=== PATIENT | male | born 1975 | race Caucasian/White ===

== ENCOUNTER → 2019-06-29 15:58 | Outpatient (BNVA) | payer SELFPAY | PROVIDERS: Family Provider Nurse Practitioner; PCP Nurse Practitioner; Visit Provider Nurse Practitioner Family | DX: J02.9 Acute pharyngitis, unspecified (principal); J03.90 Acute tonsillitis, unspecified | CPT/HCPCS: 87081; 87880 ==

== ENCOUNTER → 2020-07-26 10:37 | Outpatient (BNVA) | payer SELFPAY | PROVIDERS: Family Provider Nurse Practitioner; PCP Nurse Practitioner; Visit Provider Dermatology | DX: Z01.89 Encounter for other specified special examinations (principal) ==

== ENCOUNTER → 2021-01-24 08:25 | Outpatient (BNVA) | payer SELFPAY | PROVIDERS: Family Provider Nurse Practitioner; PCP Nurse Practitioner; Visit Provider Dermatology | DX: Z13.9 Encounter for screening, unspecified (principal) ==

== ENCOUNTER → 2021-04-17 10:01 | Outpatient (BNVA) | payer OTHER, SELFPAY | PROVIDERS: Family Provider Nurse Practitioner; PCP Nurse Practitioner; Visit Provider Nurse Practitioner Family | DX: Z20.822 Contact with and (suspected) exposure to COVID-19 (principal); Z11.52 Encounter for screening for COVID-19 | CPT/HCPCS: 87635 ==

== ENCOUNTER 2021-04-23 18:28 | Emergency (ER) | payer OTHER, SELFPAY ==
[2021-04-23 19:52] VITALS: BP 107/76; PULSE 94; RESP 19; TEMP 37.7; O2SAT 92; BMI 32.5
--- NOTE | 2021-04-23 20:20 | XRR_ITS ---
PROCEDURE INFORMATION: Exam: XR Chest Exam date and time: 04/23/2021 8:20 PM Age: 46 years old Clinical indication: Dyspnea and fever; Additional info: Covid+, SOB and fever TECHNIQUE: Imaging protocol: XR of the chest. Views: 1 view. COMPARISON: No relevant prior studies available. FINDINGS: Lungs: Dense ground-glass opacities in the peripheral left lung. Small ground-glass opacity in the peripheral right mid lung. Pleural spaces: Unremarkable. No pleural effusion. No pneumothorax. Heart/Mediastinum: Prominence of the left hilar structures. Bones/joints: Unremarkable. XR/XR chest 1V portable [id number] IMPRESSION: 1. Multilobar pneumonia, left greater than right, consistent with COVID-19 pneumonia. 2. Prominent left hilum could represent reactive lymphadenopathy. This can also be seen with pulmonary embolus. If there is clinical concern for pulmonary embolus, follow-up with a CTA of the chest would be recommended.
--- NOTE | 2021-04-23 23:38 | CTR_ITS ---
PROCEDURE INFORMATION: Exam: CTA Chest With Contrast Exam date and time: 04/23/2021 11:38 PM Age: 46 years old Clinical indication: Pain; On breathing; Additional info: Cp covid 19 TECHNIQUE: Imaging protocol: Computed tomographic angiography of the chest with contrast. 3D rendering (Not supervised by radiologist): MIP and/or 3D reconstructed images were created by the technologist. Radiation optimization: All CT scans at this facility use at least one of these dose optimization techniques: automated exposure control; mA and/or kV adjustment per patient size (includes targeted exams where dose is matched to clinical indication); or iterative reconstruction. Contrast material: OMNI 350; Contrast volume: 95 ml; Contrast route: INTRAVENOUS (IV); COMPARISON: CR (CHEST, ) 04/23/2021 8:29 PM RADIATION DOSE METRICS: Total DLP (mGy-cm): 615.51 FINDINGS: Pulmonary arteries: No pulmonary embolism. Aorta: No aortic dissection. Lungs: Hazy bilateral pulmonary opacities which are consistent with COVID-19. Pleural spaces: Unremarkable. No pneumothorax. No pleural effusion. Heart: Unremarkable. No cardiomegaly. No pericardial effusion. Lymph nodes: Multiple, nonspecific, enlarged mediastinal lymph nodes, likely reactive. Liver: There is fatty infiltration of the liver. Bones/joints: Unremarkable. No acute fracture. Soft tissues: Unremarkable. CT/CT angio chest PE protcl [id number] IMPRESSION: 1. No pulmonary embolism. 2. Hazy bilateral pulmonary opacities which are consistent with COVID-19. 3. Fatty infiltration of the liver. 4. No aortic dissection. 5. Multiple, nonspecific, enlarged mediastinal lymph nodes, likely reactive.
[2021-04-24] VITALS: BP 105/70; PULSE 83; RESP 18; O2SAT 91
[2021-04-24] MEDS: iohexol 350 mg/mL 100 mL Btl IV (00:17)
[2021-04-24 00:21] LABS: Basophils % 0.2 %; Hematocrit 48.1 % (42.0-52.0); Hemoglobin 16.8 g/dL (11.7-16.6); Lymphocytes # 1.5 10^3/uL (0.8-4.8); Lymphocytes % 24.4 %; Mean Corpuscular HGB Conc 34.9 g/dL (30.0-36.0); Mean Corpuscular Hemoglobin 31.4 pg (28.0-34.0); Mean Corpuscular Volume 89.9 fl (80-94); Mean Platelet Volume 9.3 fL (7.4-10.4); Monocytes # 0.3 10^3/uL (0.2-0.9); Monocytes % 5.7 %; Neutrophils % 68.9 %; Nucleated Red Blood Cells % 0 %; Platelet Count 246 10^3/cmm (130-400); Red Blood Count 5.35 10^6/uL (4.1-5.3); Red Cell Distribution Width 11.8 % (12.1-15.1)
[2021-04-24 00:35] LABS: D Dimer 0.69 ug/mIFEU (0-0.59)
[2021-04-24 00:40] LABS: Alanine Aminotransferase 46 U/L (0-41); Albumin Level 3.8 g/dL (3.5-5.2); Alkaline Phosphatase 55 IU/L (40-130); Anion Gap 21.3 (5-19); Aspartate Amino Transferase 60 U/L (0-40); Blood Urea Nitrogen 16 mg/dL (6-20); C Reactive Protein 93.9 mg/L (0.0-4.9); Calcium 8.2 mg/dL (8.5-10.5); Carbon Dioxide 26 mmol/L (22-29); Chloride 88 mmol/L (98-107); Globulin 3.2 g/dL (1.3-4.6); Glomerular Filtration Rate 103.2 mL/min (90-130); Glucose 98 mg/dL (65-115); Osmolality Calculated 275 mOsm/kg (285-295); Potassium 3.3 mmol/L (3.5-5.1); Sodium 132 mmol/L (136-145); Total Bilirubin 0.5 mg/dL (0.15-1.2)
[2021-04-24 00:45] LABS: Slide Review Slide Review Perform
[2021-04-24 00:46] LABS: Procalcitonin 0.35 ng/mL (0-0.5)
[2021-04-24 00:59] VITALS: RESP 18
[2021-04-24] MEDS: ketorolac 30 mg/mL INJ 15 MG IVP (00:59)
[2021-04-24] MEDS: morphine 4 mg/mL SDV 1 mL IVP (00:59)
--- NOTE | 2021-04-24 01:40 | ED_ITS ---
HPI - COVID General: Chief Complaint: COVID symptoms Stated Complaint: Covid + Time Seen by Provider: 04/23/21 23:09 Triage information: Has fever, cough or shortness of breath . No known COVID + exposure last 14 days History of Present Illness: HPI Narrative: 46-year-old male on day 9 of symptoms. He was tested positive Saturday. He is experienced generalized weakness, shortness of breath, some diarrhea. Cough and headache as well. MD complaint: known COVID positive Prior covid testing: yes, results known COVID 19 common symptoms: positive fever(s), chills, cough, non-productive cough, dyspnea, fatigue, body aches and headache(s) COVID 19 other sytmptoms: positive chest pressure and chest pain; negative requiring oxygen Onset (ago): day(s) (9) Severity: moderate Pertinent comorbid conditions: diabetes and hypertension Treatment prior to arrival: acetaminophen, ibuprofen and antiviral therapy COVID Results: SARS-CoV-2 RNA (RT-PCR) Detected (NOT DETECTED) A 04/17/21 10:01 04/17/21 Review of Systems Const: Reports: fever(s), chills, body aches and fatigue Card: Reports: chest pain Resp: Reports: dyspnea and non-productive cough Neuro: Reports: headache(s) PFS ED PFSH: Medical History (Updated 04/24/21 @ 01:58 by Jhon Tripathi DO) Hypertension Mixed hyperlipidemia Surgical History History of arthroscopy of right shoulder 2005 Family History Grandfather Hypertension Grandmother Diabetes Denies family history of Cancer Social History Smoking and tobacco status: never smoked Second hand smoke exposure: No Smoking risk assessment/counseling performed?: No Alcohol intake: current Alcohol intake frequency: holidays/special occasions only Desire information about alcohol rehabilitation?: No Counseling given: No Desire information about substance/drug rehabilitation?: No Counseling given: No Adopted: No Caregiver/support person: No Lives independently: Yes Housing: House Marital status: Single Number of children: 2 service: Yes branch: [employer] Current occupational status: employed History of recent travel: No Current gender identity: Male Physical Exam Const: COMMON NORMALS: patient oriented x3 and alert GENERAL APPEARANCE: cooperative and ill appearing; not frail appearing ORIENTATION/CONSCIOUSNESS: Yes awake, Yes oriented to person, Yes oriented to place and Yes oriented to time HENMT: COMMON NORMALS: normocephalic, atraumatic and Normal external nose present HEAD & SCALP: normocephalic and atraumatic FACE & SINUS: normal facial exam NOSE: Normal external nose present THROAT: posterior oropharynx abnormal erythema Eye: COMMON NORMALS: Equal, round and reactive pupils present, EOMs intact bilaterally and conjunctivae normal CONJUNCTIVA: Yes conjunctivae normal PUPIL: Yes Equal, round and reactive pupils present Chest: COMMONS NORMALS: normal inspection of the chest Resp: COMMON NORMALS: normal respiratory effort, No use of accessory muscles and clear to auscultation bilaterally AUSCULTATION: clear to auscultation bilaterally Cardio: COMMON NORMALS: regular rate and regular rhythm RATE: regular rate RHYTHM: regular rhythm GI: COMMON NORMALS: Normal to inspection, nondistended, normoactive bowel sounds present and Soft to palpation PALPATION: Yes Soft to palpation Neuro: COMMON NORMALS: patient oriented x3 SENSORIUM/ORIENTATION: Yes alert, Yes oriented to person, Yes oriented to place and Yes oriented to time Course Vital Signs: Vital signs: Vital Signs Temperature 99.9 F H 04/23/21 19:52 Pulse Rate 83 04/24/21 00:00 Respiratory Rate 18 04/24/21 00:59 Blood Pressure 105/70 04/24/21 00:00 Pulse Oximetry 91 04/24/21 00:00 MDM - COVID MDM Narrative: Medical decision making narrative: Patient's saturations are 90 to 92% on room air. He is not overly tachypneic. He does feel short of breath. White blood cell count is 6. Potassium 3.3. His chest x-ray shows bilateral pneumonia. His D-dimer slightly elevated. CTA shows no pulmonary embolism, but does show bilateral pneumonia. Given his risk factors, and the fact that he is on day 9 of symptoms, monoclonal antibody infusion is given to the patient here. He would not have time to set up as an outpatient. He will come back for worsening symptoms. Lab Data: Labs: Lab Results 04/24/21 04/24/21 04/24/21 00:15 00:15 00:15 WBC 6.0 10^3/uL 10^3/ uL (4.0-10.0) RBC 5.35 10^6/uL H 10 ^6/uL (4.1-5.3) Hgb 16.8 g/dL H g/dL (11.7-16.6) Hct 48.1 % % (42.0-52.0) MCV 89.9 fl fl (80-94) MCH 31.4 pg pg (28.0-34.0) MCHC 34.9 g/dL g/dL (30.0-36.0) RDW 11.8 % L % (12.1-15.1) Plt Count 246 10^3/cmm 10^3 /cmm (130-400) MPV 9.3 fL fL (7.4-10.4) Neut % (Auto) 68.9 % % Lymph % (Auto) 24.4 % % [place] % (Auto) 5.7 % % Eos % (Auto) 0.0 % % Baso % (Auto) 0.2 % % Neut # (Auto) 4.10 10^3/uL 10^3 /uL (1.8-7.7) Lymph # (Auto) 1.5 10^3/uL 10^3/ uL (0.8-4.8) Chester # (Auto) 0.3 10^3/uL 10^3/ uL (0.2-0.9) Eos # (Auto) 0.0 10^3/uL 10^3/ uL (0.0-0.8) Baso # (Auto) 0.0 10^3/uL 10^3/ uL (0.0-0.1) Nucleated RBC % (a uto) 0 % % Nucleated RBCs # 0.0 /100WBC /100W BC D-Dimer 0.69 ug/mIFEU H u g/mIFEU (0-0.59) Sodium 132 mmol/L L mmol /L (136-145) Potassium 3.3 mmol/L L mmol /L (3.5-5.1) Chloride 88 mmol/L L mmol/ L (98-107) Carbon Dioxide 26 mmol/L mmol/L (22-29) Anion Gap 21.3 H (5-19) BUN 16 mg/dL mg/dL (6-20) Creatinine 0.8 mg/dL mg/dL (0.7-1.2) GFR Calculation 103.2 mL/min mL/m in (90-130) Glucose 98 mg/dL mg/dL (65-115) Calculated Osmolal ity 275 mOsm/kg L mOs m/kg (285-295) Calcium 8.2 mg/dL L mg/dL (8.5-10.5) Total Bilirubin 0.5 mg/dL mg/dL (0.15-1.2) AST 60 U/L H U/L (0-40) ALT 46 U/L H U/L (0-41) Alkaline Phosphata se 55 IU/L IU/L (40-130) C-Reactive Protein 93.9 mg/L H mg/L (0.0-4.9) Total Protein 7.0 g/dL g/dL (6.6-8.7) Albumin 3.8 g/dL g/dL (3.5-5.2) Globulin 3.2 g/dL g/dL (1.3-4.6) Procalcitonin 0.35 ng/mL ng/mL (0-0.5) COVID Results: SARS-CoV-2 RNA (RT-PCR) Detected (NOT DETECTED) A 04/17/21 10:01 04/17/21 Discharge Plan Discharge Patient Disposition: Home Clinical Impression: Pneumonia due to COVID-19 virus Condition: Stable Prescriptions: New dexamethasone 6 mg tablet 6 mg PO DAILY Qty: 5 RF: 0 No Action amlodipine [Norvasc] 5 mg tablet 5 mg PO DAILY Qty: 30 RF: 5 benazepril 40 mg tablet 40 mg PO DAILY Qty: 30 RF: 5 chlorthalidone 25 mg tablet 25 mg PO DAILY Qty: 30 RF: 5 rosuvastatin [Crestor] 10 mg tablet 10 mg PO DAILY Qty: 30 RF: 5 metformin 500 mg tablet extended release 24 hr 1,000 mg PO DAILY Qty: 60 RF: 5 methylprednisolone [Medrol (John)] 4 mg tablets,dose pack See Rx Instructions PO PER PKG DIR Qty: 21 RF: 0 azithromycin [Zithromax Z-John] 250 mg tablet See Rx Instructions PO .COMPLEX Qty: 6 RF: 0 promethazine-DM 6.25-15 mg/5 mL syrup 5 ml PO Q6H PRN (Reason: cough) Qty: 200 RF: 1 albuterol sulfate [ProAir HFA] 90 mcg/actuation HFA aerosol inhaler 2 puff inhalation Q6H PRN (Reason: shortness of breath or wheezing) Qty: 8.5 RF: 5 budesonide-formoterol [Symbicort] 160-4.5 mcg/actuation HFA aerosol inhaler 2 puff inhalation BID Qty: 10.2 RF: 6 Discharge Orders: Discharge ED (Routine); Ordered 04/24/21 Ordered By: Jhon Tripathi Referrals: Carline Cook, [facility] [Primary Care Provider] - 1-3 days Discharge Diet: Advance as tolerated Discharge Activity: Limit activity as instructed Patient Instructions: COVID-19 (Coronavirus Disease 2019) (ED) Activity Restrictions/Additional Instructions: Return for worsening shortness of breath, worsening weakness, vomiting liquids or medications, inability to control fever, other concerning symptoms. Coding Level of Care Code ED Banquet Houseperson for Chg Fwd Exam Detailed
[2021-04-24 04:24] VITALS: BP 114/84; PULSE 78; RESP 18; O2SAT 92
== END 2021-04-24 04:25 | disposition home or self-care (01) ==
PROVIDERS: Emergency Provider Emergency Medicine; PCP Nurse Practitioner
DX: U07.1 COVID-19 (principal); J12.82 Pneumonia due to coronavirus disease 2019; I10 Essential (primary) hypertension; E78.2 Mixed hyperlipidemia
CPT/HCPCS: 71045; 71275; 80053; 84145; 85025; 85378; 86140; 96365; 96375; 99283; J1885; J2270; Q9967

== ENCOUNTER 2021-04-29 13:43 | Inpatient (IN) | payer OTHER, SELFPAY ==
[2021-04-29] VITALS (9 sets, daily range): BP systolic 96–115; BP diastolic 66–78; PULSE 66–112; RESP 14–24; TEMP 36.6–37.2; O2SAT 90–97; BMI 30.9
--- NOTE | 2021-04-29 14:09 | ED_ITS ---
HPI - COVID General: Chief Complaint: COVID symptoms Stated Complaint: SOB Time Seen by Provider: 04/29/21 14:09 Triage information: Has fever, cough or shortness of breath . Exposure to COVID + person last 14 days History of Present Illness: HPI Narrative: Mr. Neville is a 46-year-old gentleman with history of hypertension and hyperlipidemia presents the emergency department due to shortness of breath and cough as well as generalized symptoms. Symptom onset was approximately 15 days ago. Initially he had fairly mild symptoms such as cough, congestion, and upper respiratory symptoms. He was seen on 1212 and diagnosed with bronchitis. He subsequently returned to the emergency department on the with continued symptoms. He reports symptoms have continued to worsen and now moderate to severe in intensity. He exp eriences profound fatigue. Cough is nonproductive. He has difficulty determining whether there was improvement in the worsening though he thinks perhaps so. He has had difficulty with staying hydrated. Denies any other significant changes, no other specific exacerbating or relieving factors identified. COVID Results: SARS-CoV-2 RNA (RT-PCR) Detected (NOT DETECTED) A 04/17/21 10:01 04/17/21 Review of Systems General: Reports: 10 or more systems reviewed and unremarkable except in HPI and below PFSH ED PFSH: Medical History (Updated 05/04/21 @ 00:01 by ) Hypertension Mixed hyperlipidemia Surgical History History of arthroscopy of right shoulder 2005 Family History Grandfather Hypertension Grandmother Diabetes Denies family history of Cancer Social History Smoking and tobacco status: never smoked Second hand smoke exposure: No Smoking risk assessment/counseling performed?: No Alcohol intake: current Alcohol intake frequency: holidays/special occasions only Desire information about alcohol rehabilitation?: No Counseling given: No Desire information about substance/drug rehabilitation?: No Counseling given: No Adopted: No Caregiver/support person: No Lives independently: Yes Housing: House Marital status: Single Number of children: 2 service: Yes branch: [employer] Current occupational status: employed History of recent travel: No Current gender identity: Male Physical Exam Narrative: EXAM NARRATIVE: GENERAL/CONSTITUTIONAL - ill-appearing. Respiratory distress Eyes - PERRL, no conjunctival injection ENMT - Atraumatic external nose and ears. Dry mucous membranes NECK - supple. trachea midline CARDIOVASCULAR - tachycardic rate and regular rhythm. Normal cap refill. RESPIRATORY - coarse/diminished to auscultation bilaterally. Increased work of breathing, supplemental oxygen in place. Hypoxemic on room air to the low 80s ABDOMEN/GI - Nontender/Nondistended. MSK - Extremities without obvious deformity or tenderness to palpation SKIN - Warm, Dry NEURO - alert and appropriately oriented. Moves all extremities equally. Course ED course: - Patient was seen and evaluated by me at bedside - Patient placed on cardiac monitors, IV access obtained - Initial evaluation notable for exam as above -Symptom treatment ordered - Labs notable for leukocytosis, hemoconcentration. Metabolic panel with evidence of dehydration and hypokalemia, potassium replenishment ordered. - ABG with respiratory alkalosis - Imaging notable for bilateral opacities consistent with pneumonia secondary to Covid as reported in history - Upon serial reexamination after treatment the patient was only minimally improved, still requiring oxygen and ill-appearing - Based on patient history, evaluation, labs, and imaging as interpreted the most likely cause of the patient's condition is COVID-19 pneumonia with hypoxemia - The results of ED evaluation were discussed with the patient including plan for admission due to requirement for level of care not available if discharged to prevent significant worsening/deterioration. -Hospitalist service contacted and agreed admit the patient. - Patient was admitted without further deterioration or significant events. Vital Signs: Vital signs: Vital Signs Temperature 98.3 F 05/03/21 11:38 Pulse Rate 88 05/03/21 11:38 Respiratory Rate 17 05/03/21 11:38 Blood Pressure 114/83 05/03/21 11:38 Pulse Oximetry 93 05/03/21 11:38 MDM - COVID Medical Records: Attestation: I reviewed the patient's medical records. Lab Data: Attestation: I reviewed the patient's lab results. Labs: Lab Results 04/29/21 04/29/21 04/29/21 14:34 14:55 15:09 WBC 11.5 10^3/uL H 10 ^3/uL (4.0-10.0) RBC 5.51 10^6/uL H 10 ^6/uL (4.1-5.3) Hgb 17.1 g/dL H g/dL (11.7-16.6) Hct 48.4 % % (42.0-52.0) MCV 87.8 fl fl (80-94) MCH 31.0 pg pg (28.0-34.0) MCHC 35.3 g/dL g/dL (30.0-36.0) RDW 11.5 % L % (12.1-15.1) Plt Count 523 10^3/cmm H 10 ^3/cmm (130-400) MPV 9.8 fL fL (7.4-10.4) Neut % (Auto) 72.3 % % Lymph % (Auto) 11.9 % % Carson % (Auto) 8.7 % % Eos % (Auto) 2.4 % % Baso % (Auto) 0.5 % % Neut # (Auto) 8.33 10^3/uL H 10 ^3/uL (1.8-7.7) Lymph # (Auto) 1.4 10^3/uL 10^3/ uL (0.8-4.8) Carson # (Auto) 1.0 10^3/uL H 10^ 3/uL (0.2-0.9) Eos # (Auto) 0.3 10^3/uL 10^3/ uL (0.0-0.8) Baso # (Auto) 0.1 10^3/uL 10^3/ uL (0.0-0.1) Nucleated RBC % (a uto) 0 % % Nucleated RBCs # 0.0 /100WBC /100W BC Specimen Type Arterial Sample Site Radial, left ABG pH 7.65 H* (7.35-7.45) ABG pCO2 19.3 mmHg L* mmHg (35-45) ABG pO2 60.2 mmHg L mmHg (80.0-100.0) ABG HCO3 21.0 mmol/L L mmo l/L (22-26) ABG Base Excess 2.9 mmol/L H mmol /L (-2.0-2.0) Jacob Test Pos Hematocrit 49.8 % % (42-52) O2 Delivery Device Nc O2 Liters/Min 8.0 % % Surgical Physician Assistant ID Cak Sodium 130 mmol/L L mmol /L (136-145) Potassium 3.1 mmol/L L mmol /L (3.5-5.1) Chloride 92 mmol/L L mmol/ L (98-107) Carbon Dioxide 22 mmol/L mmol/L (22-29) Anion Gap 19.1 H (5-19) BUN 15 mg/dL mg/dL (6-20) Creatinine 0.7 mg/dL mg/dL (0.7-1.2) GFR Calculation 120.4 mL/min mL/m in (90-130) Glucose 105 mg/dL mg/dL (65-115) Calculated Osmolal ity 271 mOsm/kg L mOs m/kg (285-295) Calcium 8.3 mg/dL L mg/dL (8.5-10.5) Magnesium 1.9 mg/dL mg/dL (1.7-2.3) Total Bilirubin 0.9 mg/dL mg/dL (0.15-1.2) AST 20 U/L U/L (0-40) ALT 34 U/L U/L (0-41) Alkaline Phosphata se 53 IU/L IU/L (40-130) C-Reactive Protein 155.8 mg/L H mg/L (0.0-4.9) Total Protein 6.6 g/dL g/dL (6.6-8.7) Albumin 3.4 g/dL L g/dL (3.5-5.2) Globulin 3.2 g/dL g/dL (1.3-4.6) Procalcitonin 0.11 ng/mL ng/mL (0-0.5) Influenza Type A A g Influenza Type B A g 04/29/21 15:48 WBC RBC Hgb Hct MCV MCH MCHC RDW Plt Count MPV Neut % (Auto) Lymph % (Auto) Carson % (Auto) Eos % (Auto) Baso % (Auto) Neut # (Auto) Lymph # (Auto) Carson # (Auto) Eos # (Auto) Baso # (Auto) Nucleated RBC % (a uto) Nucleated RBCs # Specimen Type Sample Site ABG pH ABG pCO2 ABG pO2 ABG HCO3 ABG Base Excess Jacob Test Hematocrit O2 Delivery Device O2 Liters/Min Surgical Physician Assistant ID Sodium Potassium Chloride Carbon Dioxide Anion Gap BUN Creatinine GFR Calculation Glucose Calculated Osmolal ity Calcium Magnesium Total Bilirubin AST ALT Alkaline Phosphata se C-Reactive Protein Total Protein Albumin Globulin Procalcitonin Influenza Type A A g Negative (Negative) Influenza Type B A g Negative (Negative) EKG Data: EKG 1: Attestation: I personally reviewed and interpreted this EKG as follows: EKG interpretation date: 04/29/21 EKG interpretation time: 15:03 Interpretation: Twelve-lead EKG shows a regular rhythm at a rate of 88. AR interval 164. QRS duration 98. QTc 413. Normal Wiggins. Interpretation: Sinus rhythm. COVID Results: SARS-CoV-2 RNA (RT-PCR) Detected (NOT DETECTED) A 04/17/21 10:01 04/17/21 Discharge Plan Discharge Patient Disposition: Admitted As Inpatient Admit Provider: Jean Paul Kate Clinical Impression: Pneumonia due to COVID-19 virus, Hypoxemia Condition: Stable Discharge Diet: Cardiac and Diabetic Discharge Activity: Resume usual activity Coding Level of Care Code ED Software Implementation Project Manager for Salima Harvey
--- NOTE | 2021-04-29 14:21 | XRR_ITS ---
PROCEDURE INFORMATION: Exam: XR Chest Exam date and time: 04/29/2021 2:21 PM Age: 46 years old Clinical indication: Shortness of breath; Additional info: SOB TECHNIQUE: Imaging protocol: XR of the chest. Views: 1 view. COMPARISON: CR (CHEST, ) 04/23/2021 8:29 PM FINDINGS: Lungs: Worsening patulous opacities within both lungs. Pleural spaces: Unremarkable. No pleural effusion. No pneumothorax. Heart/Mediastinum: Unremarkable. No cardiomegaly. Bones/joints: Unremarkable. XR/XR chest 1V portable [id number] IMPRESSION: Worsening patulous opacities within both lungs consistent with multifocal pneumonia.
--- NOTE | 2021-04-29 14:21 | ECG_ITS ---
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 Measurements Intervals [place] Rate: 88 P: 51 GA: 164 QRS: 15 QRSD: 98 T: 35 QT: 367 QTc: 445 Interpretive Statements SINUS RHYTHM No previous ECG available for comparison Electronically Signed On 04-29-2021 17:11:45 POLE INSPECTOR by Shantell Duong M.D. [email or web address]
[2021-04-29] MEDS: sodium chloride 0.9% 500 ML IV (14:30)
[2021-04-29 14:45] LABS: Arterial Blood Gas Hematocrit 49.8 % (42-52); Base Excess ABG 2.9 mmol/L (-2.0-2.0); Blood Gas Allen Test Pos; Blood Gas Operator Identificat CAK; Blood Gas Sample Site Radial, left; Blood Gas Sample Type Arterial; Oxygen Device NC; PO2 ABG 60.2 mmHg (80.0-100.0)
--- NOTE | 2021-04-29 15:00 | PC.NURSE ---
attempted to update girlfriend- no answer
[2021-04-29 15:20] LABS: Alanine Aminotransferase 34 U/L (0-41); Alkaline Phosphatase 53 IU/L (40-130); Blood Urea Nitrogen 15 mg/dL (6-20); Glomerular Filtration Rate 120.4 mL/min (90-130); Glucose 105 mg/dL (65-115); Magnesium 1.9 mg/dL (1.7-2.3); Total Bilirubin 0.9 mg/dL (0.15-1.2); Total Protein 6.6 g/dL (6.6-8.7)
[2021-04-29 15:27] LABS: Procalcitonin 0.11 ng/mL (0-0.5)
[2021-04-29 15:27] LABS: Basophils # 0.1 10^3/uL (0.0-0.1); Basophils % 0.5 %; Eosinophils # 0.3 10^3/uL (0.0-0.8); Eosinophils % 2.4 %; Hematocrit 48.4 % (42.0-52.0); Hemoglobin 17.1 g/dL (11.7-16.6); Lymphocytes # 1.4 10^3/uL (0.8-4.8); Lymphocytes % 11.9 %; Mean Corpuscular HGB Conc 35.3 g/dL (30.0-36.0); Mean Corpuscular Volume 87.8 fl (80-94); Mean Platelet Volume 9.8 fL (7.4-10.4); Monocytes % 8.7 %; Neutrophils # 8.33 10^3/uL (1.8-7.7); Neutrophils % 72.3 %; Nucleated Red Blood Cells % 0 %; Platelet Count 523 10^3/cmm (130-400); Red Blood Count 5.51 10^6/uL (4.1-5.3); Red Cell Distribution Width 11.5 % (12.1-15.1); White Blood Count 11.5 10^3/uL (4.0-10.0)
[2021-04-29 15:48] LABS: Chloride 92 mmol/L (98-107); Osmolality Calculated 271 mOsm/kg (285-295); Potassium 3.1 mmol/L (3.5-5.1); Sodium 130 mmol/L (136-145)
[2021-04-29 15:49] LABS: Albumin Level 3.4 g/dL (3.5-5.2); Anion Gap 19.1 (5-19); Aspartate Amino Transferase 20 U/L (0-40); C Reactive Protein 155.8 mg/L (0.0-4.9); Calcium 8.3 mg/dL (8.5-10.5); Carbon Dioxide 22 mmol/L (22-29); Globulin 3.2 g/dL (1.3-4.6)
[2021-04-29] MEDS: potassium chloride ER 20 mEq Tablet 40 MEQ PO (15:59)
[2021-04-29 16:12] LABS: Influenza A by IFA Negative (Negative); Influenza B by IFA Negative (Negative)
[2021-04-29 16:14] LABS: ABG PCO2 19.3 mmHg (35-45); ABG PH Result 7.65 (7.35-7.45)
--- NOTE | 2021-04-29 17:20 | P.HP_ITS ---
Providers/Chief Complaint Admitting Physician: Jean Paul Kate MD Primary Care Provider: Carline Cook, CONSUMER AFFAIRS SPECIALIST-C Chief Complaint: SOB History of Present Illness 46 year old male with past medical history of hypertension, diabetes, came in with chief complaint of worsening fatigue, worsening shortness of breath, nonproductive cough, decreased poor oral intake, extreme sleepiness, nausea, going on for the last 7 to 8 days, he initially started having upper respiratory tract symptoms (cough congestion) about 15 days back, initially he was diagnosed with acute bronchitis, but due to continued worsening of symptoms he came to the ER on of this month At that time he was diagnosed with COVID-19, he was given antibody infusion, and sent home from the ER, on azithromycin, dexamethasone p.o. Symbicort inhaler, albuterol inhaler, symptoms have continued to worsen after discharge. Upon arrival in the ER: He was worked up for above-mentioned, CTA chest done on: 04/24: No pulmonary embolism, bilateral groundglass opacity, in both the lung field. X-ray chest: Done today: Has shown worsening of bilateral infiltrates. Pertinent labs: WBC 11.5, H&H:17.1/48, platelet count:523, serum sodium 137 potassium 3.1, BUN/ serum creatinine:15/0.7, CRP 155, procalcitonin 0.11, Influenza negative, ABG: pH 7.65 , PCO2 19, PO2 60, FiO2 8 L Review of Systems Card: Denies: palpitations, edema or swelling of feet/ankles Resp: Denies: wheezing or pain on inspiration GI: Denies: abdominal pain, diarrhea or constipation : Denies: flank pain or difficulty urinating Musc: Denies: back pain, extremity pain or extremity swelling Neuro: Denies: difficulty walking or confusion Medications/Allergies Home Medications Medication Instructions Recorded Confirmed Last Taken Type amlodipine 5 mg tablet 5 mg PO DAILY #30 tab 12/19/20 04/17/21 Unknown Rx benazepril 40 mg tablet 40 mg PO DAILY #30 tab 12/19/20 04/17/21 Unknown Rx chlorthalidone 25 mg tablet 25 mg PO DAILY #30 tab 12/19/20 04/17/21 Unknown Rx metformin 500 mg tablet,extended 1,000 mg PO DAILY #60 tab 12/19/20 04/17/21 Unknown Rx release 24 hr rosuvastatin 10 mg tablet 10 mg PO DAILY #30 tab 12/19/20 04/17/21 Unknown Rx albuterol sulfate 90 mcg/actuation 2 puff INHALATION Q6H PRN #8.5 g 04/17/21 04/17/21 Unknown Rx aerosol inhaler azithromycin 250 mg tablet See Rx Instructions PO .COMPLEX #6 04/17/21 04/17/21 Unknown Rx tab budesonide-formoterol HFA 160 2 puff INHALATION BID #10.2 g 04/17/21 04/17/21 Unknown Rx mcg-4.5 mcg/actuation aerosol inhaler methylprednisolone 4 mg tablets in See Rx Instructions PO PER PKG DIR 04/17/21 04/17/21 Unknown Rx a dose pack #21 ea promethazine-DM 6.25 mg-15 mg/5 mL 5 ml PO Q6H PRN #200 ml 04/17/21 04/17/21 Unknown Rx oral syrup dexamethasone 6 mg PO DAILY #5 tab 04/24/21 Unknown Rx Allergies Allergy/AdvReac Type Severity Reaction Status Date / Time No Known Allergies Allergy Verified 04/17/21 08:58 PFSH Acute PFSH: Medical History (Updated 04/29/21 @ 18:45 by Jean Paul Kate MD) Hypertension Mixed hyperlipidemia Surgical History History of arthroscopy of right shoulder 2005 Family History Grandfather Hypertension Grandmother Diabetes Denies family history of Cancer Social History Smoking and tobacco status: never smoked Second hand smoke exposure: No Smoking risk assessment/counseling performed?: No Alcohol intake: current Alcohol intake frequency: holidays/special occasions only Desire information about alcohol rehabilitation?: No Counseling given: No Desire information about substance/drug rehabilitation?: No Counseling given: No Adopted: No Caregiver/support person: No Lives independently: Yes Housing: House Marital status: Single Number of children: 2 service: Yes branch: [employer] Current occupational status: employed History of recent travel: No Current gender identity: Male Vitals/I&O/Wt Last Vital Signs Temp 97.8 F 04/29/21 14:01 Pulse 72 04/29/21 16:15 Resp 14 04/29/21 16:15 BP 107/78 04/29/21 16:15 Pulse Ox 97 04/29/21 16:15 Weight last 48 hrs Weight 99.79 kg Physical Exam Const: COMMON NORMALS: patient oriented x3 HENMT: COMMON NORMALS: normocephalic and atraumatic HEAD & SCALP: normocephalic and atraumatic Resp: EFFORT & INSPECTION: Yes tachypneic, Yes respiratory distress and Yes labored AUSCULTATION: diminished lung sounds Cardio: COMMON NORMALS: regular rate, regular rhythm, S1 normal heart sound present, S2 normal heart sound present, No gallops present (Cardio), No murmurs present (Cardio), No rub (Cardio) and Peripheral pulses 2+ throughout RATE: regular rate RHYTHM: regular rhythm HEART SOUNDS: S1 normal heart sound present and S2 normal heart sound present PERIPHERAL PULSES: Peripheral pulses 2+ throughout GI: COMMON NORMALS: Normal to inspection, nondistended, normoactive bowel sounds present, Soft to palpation, non-tender, No hepatosplenomegaly present and no masses AUSCULTATION: Yes normoactive bowel sounds PALPATION: Yes Soft to palpation and Yes No hepatosplenomegaly present RECTAL EXAM: Yes deferred Extremity: COMMON NORMALS: no clubbing, cyanosis or edema and no pedal edema Neuro: COMMON NORMALS: patient oriented x3 Data : 04/29/21 15:09 04/29/21 14:55 A&P Assessment and plan (1) Pneumonia due to COVID-19 virus: Status: Acute (2) Hypoxemia: Status: Acute (3) Essential hypertension: Status: Chronic (4) Diabetes: Status: Acute (5) Hyponatremia: Status: Acute Additional A&P Information 46 year old male with past medical history of hypertension, diabetes, came in with chief complaint of worsening fatigue, worsening shortness of breath, nonproductive cough, decreased poor oral intake, extreme sleepiness, nausea, going on for the last 7 to 8 days, he initially started having upper respiratory tract symptoms (cough congestion) about 15 days back, initially he was diagnosed with acute bronchitis, but due to continued worsening of symptoms he came to the ER on of this month At that time he was diagnosed with COVID-19, he was given antibody infusion, and sent home from the ER, on azithromycin, dexamethasone p.o. Symbicort inhaler, albuterol inhaler, symptoms have continued to worsen after discharge. #Covid pneumonia: Currently the patient is on Covid protocol: Monitor inflammatory markers (ESR CRP D-dimer , LDH , ferritin ) Continue to monitor x-ray chest Continue to monitor ABG Blood culture Procalcitonin is normal Sputum culture Given the fact that his CRP is high ( 93--->155): S/p 1 dose of Actemra ( 04/29) Continue remdesivir for 5-day Continue dexamethasone for 10 days Lovenox 40 subcu daily DuoNebs Advair inhaler Empirically on ceftriaxone azithromycin Supplemental oxygen as needed Monitor intake output #Hypertension: Currently blood pressure is well controlled #Diabetes: Continue sliding scale insulin Carbohydrate consistent diet Monitor fingerstick glucose #CODE STATUS: Full code #DVT prophylaxis: On Lovenox 40 Attestations Medical Necessity Statement*: Patient is to be in hospital for management of Covid pneumonia.Anticipated length of stay greater than 2 midnights. Coding Level of Care Code Acute Vp Patient for [facility] Fwd Exam Detailed Diagnoses Pneumonia due to COVID-19 virus U07.1; J12.82 Hypoxemia R09.02 Essential hypertension I10 Diabetes E11.9 Hyponatremia E87.1
--- NOTE | 2021-04-29 18:24 | PC.NURSE ---
report given to SKYLAR Graham Med/surg , pt to transfer with mask via ED cart to [facility], [facility] in place, updated that meds have not been started, SKYLAR Graham stated that they will start them on Med/surg
[2021-04-29] MEDS: enoxaparin 40 mg/0.4 mL Syringe SUBCUT (19:23)
[2021-04-29] MEDS: dexamethasone 4 mg/mL INJ 6 MG IVP (19:24)
[2021-04-29] MEDS: sodium chloride 0.9% 1,000 ML 30 ML IV (19:24)
[2021-04-29] MEDS: ascorbic acid 500 mg Tablet 1000 MG PO (19:24)
[2021-04-29] MEDS: cefTRIAXone 1,000 MG in sodium chloride 0.9% (plus) 50 ML 100 MG IV (19:25)
[2021-04-29] MEDS: remdesivir 200 MG in sodium chloride 0.9% (100 ml) 60 ML 100 MG IV (20:02)
[2021-04-29] MEDS: LORazepam 2 mg/mL INJ 1 mL IVP (20:03)
[2021-04-29 20:24] LABS: Glucose Point of Care 89 mg/dL (70-110)
[2021-04-29] MEDS: ipratropium-albuterol 3 mL Neb INHALATION (20:33)
[2021-04-29] MEDS: tocilizumab 800 MG in sodium chloride 0.9% (100 ml) 100 ML 100 MG IV (21:06)
[2021-04-29] MEDS: azithromycin 500 MG in sodium chloride 0.9% 250 ML 250 MG IV (22:17)
[2021-04-30] VITALS (16 sets, daily range): BP systolic 110–126; BP diastolic 69–86; PULSE 60–106; RESP 17–24; TEMP 36.4–36.9; O2SAT 90–96
[2021-04-30] MEDS: ipratropium-albuterol 3 mL Neb INHALATION ×7 (00:41→23:26)
[2021-04-30 06:34] LABS: Glucose Point of Care 137 mg/dL (70-110)
[2021-04-30 06:48] LABS: Basophils % 0.3 %; Eosinophils % 0.2 %; Hematocrit 41.5 % (42.0-52.0); Hemoglobin 14.4 g/dL (11.7-16.6); Lymphocytes # 1.1 10^3/uL (0.8-4.8); Lymphocytes % 16.4 %; Mean Corpuscular HGB Conc 34.7 g/dL (30.0-36.0); Mean Corpuscular Hemoglobin 31.4 pg (28.0-34.0); Mean Corpuscular Volume 90.4 fl (80-94); Mean Platelet Volume 9.7 fL (7.4-10.4); Monocytes # 0.5 10^3/uL (0.2-0.9); Monocytes % 6.8 %; Neutrophils # 4.77 10^3/uL (1.8-7.7); Neutrophils % 72.2 %; Nucleated Red Blood Cells % 0 %; Platelet Count 465 10^3/cmm (130-400); Red Blood Count 4.59 10^6/uL (4.1-5.3); Red Cell Distribution Width 11.8 % (12.1-15.1); White Blood Count 6.6 10^3/uL (4.0-10.0)
[2021-04-30 06:58] LABS: Alanine Aminotransferase 29 U/L (0-41); Alkaline Phosphatase 49 IU/L (40-130); Anion Gap 15.1 (5-19); Aspartate Amino Transferase 14 U/L (0-40); Blood Urea Nitrogen 14 mg/dL (6-20); Carbon Dioxide 23 mmol/L (22-29); Chloride 101 mmol/L (98-107); Globulin 3.7 g/dL (1.3-4.6); Glomerular Filtration Rate 120.4 mL/min (90-130); Glucose 130 mg/dL (65-115); Osmolality Calculated 282 mOsm/kg (285-295); Potassium 4.1 mmol/L (3.5-5.1); Sodium 135 mmol/L (136-145); Total Bilirubin 0.4 mg/dL (0.15-1.2); Total Protein 6.7 g/dL (6.6-8.7)
[2021-04-30 06:59] LABS: Creatine Phosphokinase 41 U/L (39-308)
[2021-04-30 07:26] LABS: Slide Review Slide Review Perform
[2021-04-30] MEDS: cholecalciferol (vitamin D3) 1,000 unit Tablet 2000 UNIT PO (08:12)
[2021-04-30] MEDS: ascorbic acid 500 mg Tablet 1000 MG PO ×2 (08:13→17:57)
[2021-04-30] MEDS: benzonatate 100 mg Capsule PO (08:13)
[2021-04-30] MEDS: zinc gluconate 50 mg Tablet PO (08:13)
[2021-04-30 16:38] LABS: Glucose Point of Care 142 mg/dL (70-110)
[2021-04-30] MEDS: enoxaparin 40 mg/0.4 mL Syringe SUBCUT (17:57)
[2021-04-30] MEDS: dexamethasone 4 mg/mL INJ 6 MG IVP (17:57)
[2021-04-30] MEDS: cefTRIAXone 1,000 MG in sodium chloride 0.9% (plus) 50 ML 100 MG IV (17:57)
--- NOTE | 2021-04-30 18:35 | PM.PN ---
Subjective Subjective: Interval history: Patient was seen and examined this morning, says that he is feeling better, says shortness of breath is improved, says that energy level is better. Remained afebrile overnight, intake output is not accurately charted, as the patient is not using urinal. Dehydration has improved. Medications: Reviewed: Yes Vitals/I&O/Wt Last Vital Signs Temp 98.5 F 04/30/21 16:00 Pulse 68 04/30/21 16:00 Resp 17 04/30/21 16:00 BP 110/69 04/30/21 16:00 Pulse Ox 96 04/30/21 16:00 04/30/21 04/30/21 04/30/21 06:59 14:59 22:59 Intake Total 550 / 1540 476 / 476 480 / 956 Output Total 400 / 400 Balance 150 / 1140 476 / 476 480 / 956 Weight last 48 hrs Weight 102.784 kg Weight 103.561 kg Weight 99.79 kg Physical Exam Const: COMMON NORMALS: patient oriented x3 HENMT: COMMON NORMALS: normocephalic and atraumatic HEAD & SCALP: normocephalic and atraumatic Resp: EFFORT & INSPECTION: Yes able to speak in complete sentences AUSCULTATION: diminished lung sounds OTHER: Minimal fine crackles bilateral. Cardio: COMMON NORMALS: regular rate, regular rhythm, S1 normal heart sound present, S2 normal heart sound present, No gallops present (Cardio), No murmurs present (Cardio), No rub (Cardio) and Peripheral pulses 2+ throughout RATE: regular rate RHYTHM: regular rhythm HEART SOUNDS: S1 normal heart sound present and S2 normal heart sound present PERIPHERAL PULSES: Peripheral pulses 2+ throughout GI: COMMON NORMALS: Normal to inspection, nondistended, normoactive bowel sounds present, Soft to palpation, non-tender, No hepatosplenomegaly present and no masses AUSCULTATION: Yes normoactive bowel sounds PALPATION: Yes Soft to palpation and Yes No hepatosplenomegaly present RECTAL EXAM: Yes deferred Extremity: COMMON NORMALS: no clubbing, cyanosis or edema and no pedal edema Neuro: COMMON NORMALS: patient oriented x3 Data : 04/30/21 06:24 04/30/21 06:24 Micro: Microbiology 04/30/21 06:20 Blood Culture - Preliminary Blood SPECIMEN COLLECTED 04/30/21 06:24 Blood Culture - Preliminary Blood SPECIMEN COLLECTED A&P Assessment and plan (1) Pneumonia due to COVID-19 virus: Status: Acute (2) Hypoxemia: Status: Acute (3) Essential hypertension: Status: Chronic (4) Diabetes: Status: Acute (5) Hyponatremia: Status: Acute Additional A&P Information 46 year old male with past medical history of hypertension, diabetes, came in with chief complaint of worsening fatigue, worsening shortness of breath, nonproductive cough, decreased poor oral intake, extreme sleepiness, nausea, going on for the last 7 to 8 days, he initially started having upper respiratory tract symptoms (cough congestion) about 15 days back, initially he was diagnosed with acute bronchitis, but due to continued worsening of symptoms he came to the ER on of this month At that time he was diagnosed with COVID-19, he was given antibody infusion, and sent home from the ER, on azithromycin, dexamethasone p.o. Symbicort inhaler, albuterol inhaler, symptoms have continued to worsen after discharge. #Covid pneumonia: Currently the patient is on Covid protocol: Monitor inflammatory markers (ESR CRP D-dimer , LDH , ferritin ) Continue to monitor x-ray chest Continue to monitor ABG Blood culture Procalcitonin is normal Sputum culture Given the fact that his CRP is high ( 93--->155): S/p 1 dose of Actemra ( 04/29) Continue remdesivir for 5-day Continue dexamethasone for 10 days Lovenox 40 subcu daily DuoNebs Advair inhaler Empirically on ceftriaxone azithromycin Supplemental oxygen as needed Monitor intake output #Hypertension: Currently blood pressure is well controlled #Diabetes: Continue sliding scale insulin Carbohydrate consistent diet Monitor fingerstick glucose #CODE STATUS: Full code #DVT prophylaxis: On Lovenox 40 Attestations Medical Necessity Statement*: Patient needs to be in the hospital for management of Covid pneumonia. 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
[2021-04-30] MEDS: remdesivir 100 MG in sodium chloride 0.9% (100 ml) 80 ML IV (19:01)
[2021-04-30] MEDS: azithromycin 500 MG in sodium chloride 0.9% 250 ML 250 MG IV (20:26)
[2021-04-30 20:34] LABS: Glucose Point of Care 123 mg/dL (70-110)
[2021-04-30 20:35] LABS: Glucose Point of Care 280 mg/dL (70-110)
[2021-05-01] VITALS (16 sets, daily range): BP systolic 107–136; BP diastolic 68–85; PULSE 68–109; RESP 16–22; TEMP 36.5–36.9; O2SAT 94–98
[2021-05-01] MEDS: ipratropium-albuterol 3 mL Neb INHALATION ×6 (03:01→23:20)
--- NOTE | 2021-05-01 06:00 | XRR_ITS ---
PROCEDURE INFORMATION: Exam: XR Chest Exam date and time: 05/01/2021 6:00 AM Age: 46 years old Clinical indication: Dyspnea; Patient HX: SOB follow up; Additional info: Pna TECHNIQUE: Imaging protocol: XR of the chest. Views: 1 view. Total images: 1 COMPARISON: CR (CHEST, ) 04/29/2021 2:43 PM FINDINGS: Lungs: Left pulmonary opacity is again noted and appears unchanged from the prior exam. Right pulmonary opacity appears improved from the prior exam. Pleural spaces: Unremarkable. No pleural effusion. No pneumothorax. Heart/Mediastinum: Heart size is stable when compared to the prior exam. Bones/joints: Osseous structures are unchanged from the prior exam. XR/XR chest 1V portable [id number] IMPRESSION: 1. Left pulmonary opacity is again noted and appears unchanged from the prior exam. 2. Right pulmonary opacity appears improved from the prior exam.
[2021-05-01 06:11] LABS: Basophils % 0.1 %; Hematocrit 38.3 % (42.0-52.0); Hemoglobin 13.5 g/dL (11.7-16.6); Lymphocytes # 1.1 10^3/uL (0.8-4.8); Lymphocytes % 10.4 %; Mean Corpuscular HGB Conc 35.2 g/dL (30.0-36.0); Mean Corpuscular Hemoglobin 32.1 pg (28.0-34.0); Mean Platelet Volume 9.7 fL (7.4-10.4); Monocytes # 0.7 10^3/uL (0.2-0.9); Monocytes % 6.7 %; Neutrophils # 8.29 10^3/uL (1.8-7.7); Neutrophils % 80.9 %; Nucleated Red Blood Cells % 0 %; Platelet Count 477 10^3/cmm (130-400); Red Blood Count 4.21 10^6/uL (4.1-5.3); Red Cell Distribution Width 11.9 % (12.1-15.1); White Blood Count 10.2 10^3/uL (4.0-10.0)
[2021-05-01 06:28] LABS: C Reactive Protein 37.9 mg/L (0.0-4.9); Lactate Dehydrogenase 237 U/L (135-225)
[2021-05-01 06:30] LABS: Glucose Point of Care 197 mg/dL (70-110)
[2021-05-01 06:32] LABS: Alanine Aminotransferase 30 U/L (0-41); Albumin Level 3.1 g/dL (3.5-5.2); Alkaline Phosphatase 44 IU/L (40-130); Anion Gap 17.4 (5-19); Aspartate Amino Transferase 14 U/L (0-40); Blood Urea Nitrogen 10 mg/dL (6-20); Calcium 7.6 mg/dL (8.5-10.5); Carbon Dioxide 20 mmol/L (22-29); Chloride 102 mmol/L (98-107); D Dimer 1.01 ug/mIFEU (0-0.59); Erythrocyte Sedimentation Rate 38 mm/hr (0-10); Globulin 2.8 g/dL (1.3-4.6); Glomerular Filtration Rate 143.8 mL/min (90-130); Glucose 219 mg/dL (65-115); Osmolality Calculated 288 mOsm/kg (285-295); Potassium 3.4 mmol/L (3.5-5.1); Sodium 136 mmol/L (136-145); Total Bilirubin 0.2 mg/dL (0.15-1.2); Total Protein 5.9 g/dL (6.6-8.7)
[2021-05-01 06:58] LABS: Ferritin 1796 ng/mL (30-400)
[2021-05-01] MEDS: ascorbic acid 500 mg Tablet 1000 MG PO ×2 (09:00→17:15)
[2021-05-01] MEDS: cholecalciferol (vitamin D3) 1,000 unit Tablet 2000 UNIT PO (09:00)
[2021-05-01] MEDS: zinc gluconate 50 mg Tablet PO (09:00)
[2021-05-01] MEDS: insulin lispro 100 unit/1 mL SUBCUT ×2 (09:00→14:08)
--- NOTE | 2021-05-01 11:12 | CT_ITS ---
WS: [id number] CTA OF THE CHEST WITH PULMONARY EMBOLISM PROTOCOL TECHNIQUE: High-resolution contrast enhanced CTA of the chest with coronal and sagittal reformatted i mages with pulmonary embolism protocol. MIP images are also reviewed. CLINICAL INFORMATION: sob, covid COMPARISON: CTA chest 04/24/21 DLP: 1178.[address] scans at [facility] use at least one of these dose optimization techniques: automated e xposure control; mA and/or kV adjustment per patient size (includes targeted exams where dose is matc hed to clinical indication); or iterative reconstruction. FINDINGS: Hazy diffuse bilateral groundglass infiltrates in the left greater than right lung base. This is more prominent in the left upper lobe and left lower lobe. Patchy infiltrates in right upper lobe. More a irspace opacification with partial consolidation has developed today. Distribution of the infiltrates is similar. Slight patchy perihilar infiltrates.Proximal main pulmonary arteries are normal. Normal segmental and subsegmental pulmonary arteries. No evidence of pulmonary embolus. Gallbladder contracted. Small esophageal hiatal hernia. Adrenal glands are normal. No axillary lymphadenopathy. No mediastinal or hilar lymphadenopathy. CT/CT angio chest PE protcl [id number] IMPRESSION: 1. No evidence of pulmonary embolus. 2. Progressed left greater than right subpleural airspace infiltrates with pro gressed airspace consolidation today. 3. No other significant changes compared to previous.
--- NOTE | 2021-05-01 11:12 | USCV_ITS ---
Radha Neville Age: 46 Gender: M : 1975 Exam Date: 05/01/2021 15:15 Ordering Phys: Conner Marr MD Technologist: Neha Markham Exam Location: [facility]_ Indication: COVID PROCEDURES: Venous duplex imaging was performed in bilateral lower extremities. The following venous structures were evaluated: common femoral vein, profunda vein, proximal portion of the greater saphenous vein, superficial femoral vein, and the popliteal vein. In addition, the posterior tibial and peroneal trunk were evaluated. Serial compression, augmentation maneuvers, and spectral Doppler flow evaluation were performed. FINDINGS: No evidence of DVT seen in any vessel visualized at this time. CONCLUSIONS No evidence of right lower extremity DVT. No evidence of left lower extremity DVT. Huang Quiñones MD (Electronically Signed) Final Date: 01 May 2021 17:08 S
[2021-05-01 12:02] LABS: Glucose Point of Care 165 mg/dL (70-110)
[2021-05-01] MEDS: iohexol 350 mg/mL 100 mL Btl IV ×2 (14:58)
[2021-05-01] MEDS: enoxaparin 40 mg/0.4 mL Syringe SUBCUT (17:14)
[2021-05-01] MEDS: cefTRIAXone 1,000 MG in sodium chloride 0.9% (plus) 50 ML 100 MG IV (17:15)
[2021-05-01] MEDS: remdesivir 100 MG in sodium chloride 0.9% (100 ml) 80 ML IV (18:05)
[2021-05-01] MEDS: dexamethasone 4 mg/mL INJ 6 MG IVP (18:06)
[2021-05-01 18:12] LABS: Glucose Point of Care 110 mg/dL (70-110)
--- NOTE | 2021-05-01 19:10 | PM.PN ---
Subjective Subjective: Interval history: Patient was seen this morning, currently on heated high flow, denies any fevers, no chills, nausea, vomiting, no lightheadedness, dizziness, no chest pain, no palpitations Medications: Reviewed: Yes Vitals/I&O/Wt Last Vital Signs Temp 97.7 F 05/01/21 16:00 Pulse 76 05/01/21 16:00 Resp 19 H 05/01/21 16:00 BP 136/81 05/01/21 16:00 Pulse Ox 96 05/01/21 16:00 05/01/21 05/01/21 05/01/21 06:59 14:59 22:59 Intake Total 720 / 720 370 / 1090 Balance 720 / 720 370 / 1090 Weight last 48 hrs Weight 105.46 kg Weight 102.784 kg Weight 103.561 kg Physical Exam Const: COMMON NORMALS: no acute distress and patient oriented x3 Resp: COMMON NORMALS: normal respiratory effort, No retractions and No use of accessory muscles AUSCULTATION: diminished lung sounds diffuse Cardio: COMMON NORMALS: regular rate, regular rhythm, S1 normal heart sound present and S2 normal heart sound present RATE: regular rate RHYTHM: regular rhythm HEART SOUNDS: S1 normal heart sound present and S2 normal heart sound present GI: COMMON NORMALS: Normal to inspection, nondistended, normoactive bowel sounds present and Soft to palpation PALPATION: Yes Soft to palpation Extremity: COMMON NORMALS: no pedal edema Neuro: COMMON NORMALS: patient oriented x3 Psych: COMMON NORMALS: mental status grossly normal Data : 05/01/21 05:46 05/01/21 05:46 Micro: Microbiology 04/30/21 06:20 Blood Culture - Preliminary Blood NEGATIVE TO DATE 04/30/21 06:24 Blood Culture - Preliminary Blood NEGATIVE TO DATE A&P Assessment and plan (1) Pneumonia due to COVID-19 virus: Status: Acute (2) Hypoxemia: Status: Acute (3) Essential hypertension: Status: Chronic (4) Diabetes: Status: Acute (5) Hyponatremia: Status: Acute Additional A&P Information 46 year old male with past medical history of hypertension, diabetes, came in with chief complaint of worsening fatigue, worsening shortness of breath, nonproductive cough, decreased poor oral intake, extreme sleepiness, nausea, going on for the last 7 to 8 days, he initially started having upper respiratory tract symptoms (cough congestion) about 15 days back, initially he was diagnosed with acute bronchitis, but due to continued worsening of symptoms he came to the ER on of this month At that time he was diagnosed with COVID-19, he was given antibody infusion, and sent home from the ER, on azithromycin, dexamethasone p.o. Symbicort inhaler, albuterol inhaler, symptoms have continued to worsen after discharge. #Covid pneumonia: Currently the patient is on Covid protocol: Monitor inflammatory markers (ESR CRP D-dimer , LDH , ferritin ) Continue to monitor x-ray chest Continue to monitor ABG Blood culture Procalcitonin is normal Sputum culture Given the fact that his CRP decreasing 37.9 S/p 1 dose of Actemra ( 04/29) Continue remdesivir for 3 of 5 Continue dexamethasone for 3 of 10 Lovenox 40 subcu daily DuoNebs Advair inhaler Empirically on ceftriaxone and azithromycin Supplemental oxygen as needed Monitor intake output Will order CT angiogram of the chest, bilateral lower extremity ultrasound given elevated D-dimer of 1 #Hypertension: Currently blood pressure is well controlled #Diabetes: Continue sliding scale insulin Carbohydrate consistent diet Monitor fingerstick glucose #CODE STATUS: Full code #DVT prophylaxis: On Lovenox 40 milligrams Attestations Medical Necessity Statement*: Patient requires hospitalization for COVID-19 pneumonia Coding Level of Care Code 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
[2021-05-01] MEDS: azithromycin 500 MG in sodium chloride 0.9% 250 ML 250 MG IV (20:41)
[2021-05-01 21:33] LABS: Glucose Point of Care 170 mg/dL (70-110)
[2021-05-02] VITALS (13 sets, daily range): BP systolic 106–125; BP diastolic 69–85; PULSE 67–123; RESP 15–22; TEMP 36.4–37.1; O2SAT 93–100
[2021-05-02] MEDS: ipratropium-albuterol 3 mL Neb INHALATION ×5 (03:28→20:46)
[2021-05-02 06:50] LABS: Glucose Point of Care 150 mg/dL (70-110)
[2021-05-02 07:12] LABS: Basophils % 0.1 %; Eosinophils % 0.1 %; Hematocrit 38.8 % (42.0-52.0); Hemoglobin 13.3 g/dL (11.7-16.6); Lymphocytes # 0.9 10^3/uL (0.8-4.8); Lymphocytes % 9.5 %; Mean Corpuscular HGB Conc 34.3 g/dL (30.0-36.0); Mean Corpuscular Hemoglobin 31.9 pg (28.0-34.0); Mean Platelet Volume 9.6 fL (7.4-10.4); Monocytes # 0.6 10^3/uL (0.2-0.9); Monocytes % 6.9 %; Neutrophils # 7.55 10^3/uL (1.8-7.7); Neutrophils % 81.4 %; Nucleated Red Blood Cells % 0 %; Platelet Count 442 10^3/cmm (130-400); Red Blood Count 4.17 10^6/uL (4.1-5.3); Red Cell Distribution Width 12.4 % (12.1-15.1); White Blood Count 9.3 10^3/uL (4.0-10.0)
[2021-05-02 07:29] LABS: D Dimer 1.39 ug/mIFEU (0-0.59)
[2021-05-02 07:34] LABS: Alanine Aminotransferase 56 U/L (0-41); Albumin Level 3.1 g/dL (3.5-5.2); Alkaline Phosphatase 46 IU/L (40-130); Anion Gap 15.9 (5-19); Aspartate Amino Transferase 30 U/L (0-40); Blood Urea Nitrogen 7 mg/dL (6-20); C Reactive Protein 15.6 mg/L (0.0-4.9); Calcium 7.8 mg/dL (8.5-10.5); Carbon Dioxide 22 mmol/L (22-29); Chloride 104 mmol/L (98-107); Globulin 2.7 g/dL (1.3-4.6); Glomerular Filtration Rate 177.5 mL/min (90-130); Glucose 145 mg/dL (65-115); Lactate Dehydrogenase 225 U/L (135-225); Osmolality Calculated 287 mOsm/kg (285-295); Potassium 3.9 mmol/L (3.5-5.1); Sodium 138 mmol/L (136-145); Total Bilirubin 0.2 mg/dL (0.15-1.2); Total Protein 5.8 g/dL (6.6-8.7)
[2021-05-02 07:57] LABS: Ferritin 1710 ng/mL (30-400)
[2021-05-02] MEDS: ascorbic acid 500 mg Tablet 1000 MG PO ×2 (09:08→17:07)
[2021-05-02] MEDS: zinc gluconate 50 mg Tablet PO (09:08)
[2021-05-02] MEDS: insulin lispro 100 unit/1 mL SUBCUT ×3 (09:08→20:08)
[2021-05-02] MEDS: cholecalciferol (vitamin D3) 1,000 unit Tablet 2000 UNIT PO (09:08)
[2021-05-02] MEDS: FUROsemide 10 mg/mL SDV 4mL 40 MG IVP (10:13)
[2021-05-02 12:15] LABS: Glucose Point of Care 142 mg/dL (70-110)
[2021-05-02 16:57] LABS: Glucose Point of Care 101 mg/dL (70-110)
[2021-05-02] MEDS: dexamethasone 4 mg/mL INJ 6 MG IVP (17:06)
[2021-05-02] MEDS: enoxaparin 40 mg/0.4 mL Syringe SUBCUT (17:07)
[2021-05-02] MEDS: cefTRIAXone 1,000 MG in sodium chloride 0.9% (plus) 50 ML 100 MG IV (17:07)
--- NOTE | 2021-05-02 17:16 | PM.PN ---
Subjective Subjective: Interval history: Patient was seen this morning, his oxygen requirements have decreased to 4 L, still complain of some shortness of breath with exertion, cough is improving, Medications: Reviewed: Yes Vitals/I&O/Wt Last Vital Signs Temp 98.7 F 05/02/21 16:00 Pulse 93 05/02/21 16:10 Resp 20 H 05/02/21 16:10 BP 116/72 05/02/21 16:00 Pulse Ox 94 05/02/21 16:10 05/02/21 05/02/21 05/02/21 06:59 14:59 22:59 Output Total 600 / 1425 1100 / 1100 0 / 1100 Balance -600 / 265 -1100 / -1100 0 / -1100 Weight last 48 hrs Weight 105.46 kg Physical Exam Const: COMMON NORMALS: no acute distress and patient oriented x3 HENMT: COMMON NORMALS: normocephalic HEAD & SCALP: normocephalic Resp: COMMON NORMALS: normal respiratory effort, No retractions and No use of accessory muscles AUSCULTATION: diminished lung sounds diffuse Cardio: COMMON NORMALS: regular rate, regular rhythm, S1 normal heart sound present and S2 normal heart sound present RATE: regular rate RHYTHM: regular rhythm HEART SOUNDS: S1 normal heart sound present and S2 normal heart sound present GI: COMMON NORMALS: Normal to inspection, nondistended, normoactive bowel sounds present, Soft to palpation and non-tender PALPATION: Yes Soft to palpation Extremity: COMMON NORMALS: no pedal edema Neuro: COMMON NORMALS: patient oriented x3 Psych: COMMON NORMALS: mental status grossly normal Data : 05/02/21 06:52 05/02/21 06:52 A&P Assessment and plan (1) Pneumonia due to COVID-19 virus: Status: Acute (2) Hypoxemia: Status: Acute (3) Essential hypertension: Status: Chronic (4) Diabetes: Status: Acute (5) Hyponatremia: Status: Acute Additional A&P Information 46 year old male with past medical history of hypertension, diabetes, came in with chief complaint of worsening fatigue, worsening shortness of breath, nonproductive cough, decreased poor oral intake, extreme sleepiness, nausea, going on for the last 7 to 8 days, he initially started having upper respiratory tract symptoms (cough congestion) about 15 days back, initially he was diagnosed with acute bronchitis, but due to continued worsening of symptoms he came to the ER on of this month At that time he was diagnosed with COVID-19, he was given antibody infusion, and sent home from the ER, on azithromycin, dexamethasone p.o. Symbicort inhaler, albuterol inhaler, symptoms have continued to worsen after discharge. #Covid pneumonia: Currently the patient is on Covid protocol: Monitor inflammatory markers (ESR CRP D-dimer , LDH , ferritin ) Continue to monitor x-ray chest Continue to monitor ABG Blood culture Procalcitonin is normal Sputum culture Given the fact that his CRP decreasing 37.9 S/p 1 dose of Actemra ( 04/29) Continue remdesivir for 4-5 Continue dexamethasone for 4 of 10 Lovenox 40 subcu daily DuoNebs Advair inhaler Empirically on ceftriaxone and azithromycin Supplemental oxygen as needed Monitor intake output CT angiogram negative for pulmonary emboli, bilateral extremity ultrasound negative for DVT #Hypertension: Currently blood pressure is well controlled #Diabetes: Continue sliding scale insulin Carbohydrate consistent diet Monitor fingerstick glucose #CODE STATUS: Full code #DVT prophylaxis: On Lovenox 40 milligrams Attestations Medical Necessity Statement*: Patient requires hospitalization for pneumonia secondary COVID-19 Coding Level of Care Code Acute Clinical Trials Data Coordinator for [facility] Diagnoses Pneumonia due to COVID-19 virus U07.1; J12.82 Hypoxemia R09.02 Essential hypertension I10 Diabetes E11.9 Hyponatremia E87.1
[2021-05-02] MEDS: remdesivir 100 MG in sodium chloride 0.9% (100 ml) 80 ML IV (18:19)
[2021-05-02 19:49] LABS: Glucose Point of Care 176 mg/dL (70-110)
[2021-05-02] MEDS: azithromycin 250 mg Tablet 500 MG PO (20:00)
[2021-05-03] VITALS (8 sets, daily range): BP systolic 113–127; BP diastolic 61–84; PULSE 62–88; RESP 17–19; TEMP 36.6–37.1; O2SAT 93–96
[2021-05-03] MEDS: ipratropium-albuterol 3 mL Neb INHALATION ×2 (02:12→09:10)
[2021-05-03 06:56] LABS: Glucose Point of Care 119 mg/dL (70-110)
[2021-05-03 07:03] LABS: Basophils % 0.3 %; Eosinophils % 0.2 %; Hematocrit 41.6 % (42.0-52.0); Hemoglobin 14.1 g/dL (11.7-16.6); Lymphocytes # 1.4 10^3/uL (0.8-4.8); Lymphocytes % 11.8 %; Mean Corpuscular HGB Conc 33.9 g/dL (30.0-36.0); Mean Corpuscular Hemoglobin 31.8 pg (28.0-34.0); Mean Corpuscular Volume 93.9 fl (80-94); Mean Platelet Volume 9.6 fL (7.4-10.4); Monocytes # 0.7 10^3/uL (0.2-0.9); Monocytes % 6.1 %; Neutrophils # 9.25 10^3/uL (1.8-7.7); Neutrophils % 78.7 %; Nucleated Red Blood Cells % 0 %; Platelet Count 442 10^3/cmm (130-400); Red Blood Count 4.43 10^6/uL (4.1-5.3); Red Cell Distribution Width 12.4 % (12.1-15.1); White Blood Count 11.7 10^3/uL (4.0-10.0)
[2021-05-03 07:20] LABS: D Dimer 1.58 ug/mIFEU (0-0.59)
[2021-05-03 07:30] LABS: C Reactive Protein 9.2 mg/L (0.0-4.9); Lactate Dehydrogenase 274 U/L (135-225)
[2021-05-03 07:33] LABS: Alanine Aminotransferase 122 U/L (0-41); Albumin Level 3.3 g/dL (3.5-5.2); Alkaline Phosphatase 49 IU/L (40-130); Anion Gap 15.3 (5-19); Aspartate Amino Transferase 55 U/L (0-40); Blood Urea Nitrogen 11 mg/dL (6-20); Carbon Dioxide 24 mmol/L (22-29); Chloride 104 mmol/L (98-107); Globulin 2.4 g/dL (1.3-4.6); Glomerular Filtration Rate 177.5 mL/min (90-130); Glucose 123 mg/dL (65-115); Osmolality Calculated 289 mOsm/kg (285-295); Potassium 4.3 mmol/L (3.5-5.1); Sodium 139 mmol/L (136-145); Total Bilirubin 0.2 mg/dL (0.15-1.2); Total Protein 5.7 g/dL (6.6-8.7)
[2021-05-03 07:43] LABS: Ferritin 1934 ng/mL (30-400)
[2021-05-03] MEDS: zinc gluconate 50 mg Tablet PO (08:17)
[2021-05-03] MEDS: ascorbic acid 500 mg Tablet 1000 MG PO (08:17)
[2021-05-03] MEDS: cholecalciferol (vitamin D3) 1,000 unit Tablet 2000 UNIT PO (08:17)
[2021-05-03 11:22] LABS: Glucose Point of Care 134 mg/dL (70-110)
--- NOTE | 2021-05-03 12:07 | PM.DCS ---
Discharge Providers Date of Admission: 04/29/21 15:58 Date of Discharge: May 03, 2021 Attending Provider at Admission: Jean Paul Kate MD Attending Provider at Discharge: Conner Marr MD Primary Care Provider: DEV Rebolledo Diagnoses at Discharge Discharge Diagnosis (1) Pneumonia due to COVID-19 virus: Status: Acute (2) Hypoxemia: Status: Acute (3) Essential hypertension: Status: Chronic (4) Diabetes: Status: Acute (5) Hyponatremia: Status: Acute Reason for Visit Reason for Visit: SOB Hospital Course Hospital Course This is a 46-year-old male with a past medical history of type 2 diabetes mellitus, hypertension, hyperlipidemia who presents to [facility] due to shortness of breath Patient was admitted to [facility] due to shortness of breath secondary to COVID-19 pneumonia, he was admitted to the general medical floors, received oxygen therapy, completed 5 days of Decadron therapy, 5 days of remdesivir therapy, received 1 dose of Actemra, was placed on antibiotic therapy for secondary bacterial pneumonia prophylaxis, all cultures remain unremarkable, his symptomatology improved. Remained afebrile, symptomatology improving, weaned down to room air. Discharged on albuterol, Advair, doxycycline, with close follow-up with primary care provider as outpatient In terms of his hypercoagulability prophylaxis for COVID-19, no prior or current history of DVT or pulmonary emboli, no history of recent surgery, patient was fairly mobile. Patient was advised that he has a low risk of hypercoagulability event associate with COVID-19, but low risk does not mean no risk. Advised to continue to be mobile, monitor for signs of DVT or pulmonary embolism if so go to the emergency room. -Please continue to self isolate for at least 21 days from 04/17/2021 -Continue to self isolate, socially distance, facemask, hand wash -You have an at home, I would strongly advise for you to avoid any direct contact with your infant for at least 21 days as above due to their immature immune system and risk of infection -Please take doxycycline as prescribed, albuterol, Advair as prescribed -Please monitor for signs of blood clots -Continue to be mobile -Follow-up with primary care provider in 1 week -Please discuss with primary care provider about COVID-19 vaccination within at least 4 to 6 weeks Physical Exam Const: COMMON NORMALS: no acute distress and patient oriented x3 Resp: COMMON NORMALS: normal respiratory effort, No retractions, No use of accessory muscles and clear to auscultation bilaterally AUSCULTATION: clear to auscultation bilaterally Cardio: COMMON NORMALS: regular rate, regular rhythm, S1 normal heart sound present and S2 normal heart sound present RATE: regular rate RHYTHM: regular rhythm HEART SOUNDS: S1 normal heart sound present and S2 normal heart sound present GI: COMMON NORMALS: Normal to inspection, nondistended, normoactive bowel sounds present, Soft to palpation and non-tender PALPATION: Yes Soft to palpation Extremity: COMMON NORMALS: no pedal edema Neuro: COMMON NORMALS: patient oriented x3 Psych: COMMON NORMALS: mental status grossly normal Discharge Data Data Completed and Pending: Completed Studies During Hospitalization Category Date Time Status CT angio chest PE protcl [id number] Rout ine Cat Scan 05/01/21 11:12 Completed XR chest 1V shakira ble [id number] Routine Exams 05/01/21 06:00 Completed XR chest 1V shakira ble [id number] Urgent Exams 04/29/21 14:21 [place] [id number] Routin e Ultrasound 05/01/21 11:12 Completed Pending at discharge Category Date Time Status Bacterial Antigen AM LABS Lab 04/30/21 04:00 Uncollected Blood Culture Rou tim Lab 04/30/21 06:20 Results Complete Blood Co unt w/Auto AM LABS Lab 05/04/21 04:00 Ordered Complete Blood Co unt w/Auto AM LABS Lab 05/05/21 04:00 Ordered Comprehensive Met abolic Panel AM LA BS Lab 05/04/21 04:00 Ordered Comprehensive Met abolic Panel AM LA BS Lab 05/05/21 04:00 Ordered Labs from last 24 hours 05/03/21 05/03/21 05/03/21 11:07 06:40 06:40 WBC 11.7 H RBC 4.43 Hgb 14.1 Hct 41.6 L MCV 93.9 MCH 31.8 MCHC 33.9 RDW 12.4 Plt Count 442 H MPV 9.6 Neut % (Auto) 78.7 Lymph % (Auto) 11.8 Hubbard % (Auto) 6.1 Eos % (Auto) 0.2 Baso % (Auto) 0.3 Neut # (Auto) 9.25 H Lymph # (Auto) 1.4 Hubbard # (Auto) 0.7 Eos # (Auto) 0.0 Baso # (Auto) 0.0 Nucleated RBC % (a uto) 0 Nucleated RBCs # 0.0 D-Dimer Sodium 139 Potassium 4.3 Chloride 104 Carbon Dioxide 24 Anion Gap 15.3 BUN 11 Creatinine 0.5 L GFR Calculation 177.5 H Glucose 123 H POC Glucose 134 H Calculated Osmolal ity 289 Calcium 8.0 L Ferritin Total Bilirubin 0.2 AST 55 H ALT 122 H Alkaline Phosphata se 49 Lactate Dehydrogen ase C-Reactive Protein Total Protein 5.7 L Albumin 3.3 L Globulin 2.4 05/03/21 05/03/21 05/03/21 06:40 06:40 06:28 WBC RBC Hgb Hct MCV MCH MCHC RDW Plt Count MPV Neut % (Auto) Lymph % (Auto) Hubbard % (Auto) Eos % (Auto) Baso % (Auto) Neut # (Auto) Lymph # (Auto) Hubbard # (Auto) Eos # (Auto) Baso # (Auto) Nucleated RBC % (a uto) Nucleated RBCs # D-Dimer 1.58 H Sodium Potassium Chloride Carbon Dioxide Anion Gap BUN Creatinine GFR Calculation Glucose POC Glucose 119 H Calculated Osmolal ity Calcium Ferritin 1934 H Total Bilirubin AST ALT Alkaline Phosphata se Lactate Dehydrogen ase 274 H C-Reactive Protein 9.2 H Total Protein Albumin Globulin 05/02/21 05/02/21 05/02/21 19:44 16:40 11:41 WBC RBC Hgb Hct MCV MCH MCHC RDW Plt Count MPV Neut % (Auto) Lymph % (Auto) Hubbard % (Auto) Eos % (Auto) Baso % (Auto) Neut # (Auto) Lymph # (Auto) Hubbard # (Auto) Eos # (Auto) Baso # (Auto) Nucleated RBC % (a uto) Nucleated RBCs # D-Dimer Sodium Potassium Chloride Carbon Dioxide Anion Gap BUN Creatinine GFR Calculation Glucose POC Glucose 176 H 101 142 H Calculated Osmolal ity Calcium Ferritin Total Bilirubin AST ALT Alkaline Phosphata se Lactate Dehydrogen ase C-Reactive Protein Total Protein Albumin Globulin Vitals: Last Vital Signs Temp 98.3 F 05/03/21 11:38 Pulse 88 05/03/21 11:38 Resp 17 05/03/21 11:38 BP 114/83 05/03/21 11:38 Pulse Ox 93 05/03/21 11:38 Discharge Plan Discharge Patient Disposition: Home Condition: Stable Prescriptions: New ascorbic acid (vitamin C) [Vitamin C] 500 mg Tablet 500 mg PO BID 30 Days Qty: 60 RF: 0 cholecalciferol (vitamin D3) 25 mcg (1,000 unit) Tablet 1,000 unit PO DAILY 30 Days Qty: 30 RF: 0 doxycycline hyclate 100 mg tablet 100 mg PO BID 5 Days Qty: 10 RF: 0 zinc gluconate 50 mg Tablet 50 mg PO DAILY 30 Days Qty: 30 RF: 0 benzonatate 100 mg Capsule 100 mg PO TID PRN (Reason: Cough) 15 Days Qty: 45 RF: 0 Continued chlorthalidone 25 mg tablet 25 mg PO DAILY Qty: 30 RF: 5 rosuvastatin [Crestor] 10 mg tablet 10 mg PO DAILY Qty: 30 RF: 5 metformin 500 mg tablet extended release 24 hr 1,000 mg PO DAILY Qty: 60 RF: 5 promethazine-DM 6.25-15 mg/5 mL syrup 5 ml PO Q6H PRN (Reason: cough) Qty: 200 RF: 1 budesonide-formoterol [Symbicort] 160-4.5 mcg/actuation HFA aerosol inhaler 2 puff inhalation BID 30 Days Qty: 10.2 RF: 6 Changed albuterol sulfate [ProAir HFA] 90 mcg/actuation HFA aerosol inhaler 1 puff inhalation Q6H PRN (Reason: shortness of breath or wheezing) Qty: 8.5 RF: 0 Discontinued amlodipine [Norvasc] 5 mg tablet 5 mg PO DAILY Qty: 30 RF: 5 benazepril 40 mg tablet 40 mg PO DAILY Qty: 30 RF: 5 Discharge Orders: Discharge Order (Routine); Ordered 05/03/21 Ordered By: Conner Marr Referrals: Carline Cook, [employer] [Primary Care Provider] - Discharge Diet: Cardiac and Diabetic Discharge Activity: Resume usual activity Patient Instructions: Opioid Safety Activity Restrictions/Additional Instructions: -Please continue to self isolate for at least 21 days from 04/17/2021 -Continue to self isolate, socially distance, facemask, hand wash -You have an infant at home, I would strongly advise for you to avoid any direct contact with your for at least 21 days as above due to their immature immune system and risk of infection -Please take doxycycline as prescribed, albuterol, Advair as prescribed -Please monitor for signs of blood clots -Continue to be mobile -Follow-up with primary care provider in 1 week -Please discuss with primary care provider about COVID-19 vaccination within at least 4 to 6 weeks Discharge Attestations Time Spent in Discharge Care*: less than 30 min Quality Metrics Clinical Quality Measures During this hospital stay, did patient experience: None Coding Level of Care Code Acute [facility] note Diagnoses Pneumonia due to COVID-19 virus U07.1; J12.82 Hypoxemia R09.02 Essential hypertension I10 Diabetes E11.9 Hyponatremia E87.1
== END 2021-05-03 14:00 | disposition home or self-care (01) | DRG 177 ==
LOC: ER 15:58 → MEDSURG 17:19
PROVIDERS: Admitting Provider Internal Medicine; Emergency Provider Emergency Medicine; PCP Nurse Practitioner; Visit Provider Family Medicine
DX: U07.1 COVID-19 (principal); J12.82 Pneumonia due to coronavirus disease 2019; E87.3 Alkalosis; E87.1 Hypo-osmolality and hyponatremia; I10 Essential (primary) hypertension; E78.2 Mixed hyperlipidemia; E86.0 Dehydration; E87.6 Hypokalemia; E11.9 Type 2 diabetes mellitus without complications; Z79.84 Long term (current) use of oral hypoglycemic drugs
CPT/HCPCS: 36415; 36416; 36600; 71045; 71275; 80053; 82550; 82728; 82803; 82962; 83615; 83735; 84145; 85025; 85378; 85651; 86140; 87040; 87804; 93005; 93970; 94640; 96365; 96372; 99285; J0456; J0696; J1100; J1650; J1815; J1940; J2060; J3262; J7030; J7040; J7050; Q0144; Q9967

== ENCOUNTER → 2021-05-12 11:32 | Outpatient (BNVA) | payer SELFPAY | PROVIDERS: PCP Nurse Practitioner; Visit Provider Nurse Practitioner | DX: I10 Essential (primary) hypertension (principal); E11.9 Type 2 diabetes mellitus without complications | CPT/HCPCS: 80053; 83036; 85025 ==

== ENCOUNTER → 2021-09-25 08:44 | Outpatient (BNVA) | payer MEDICAID, SELFPAY | PROVIDERS: PCP Nurse Practitioner; Visit Provider Nurse Practitioner | DX: I10 Essential (primary) hypertension (principal); R51.9 Headache, unspecified; E88.81 Metabolic syndrome and other insulin resistance; E78.2 Mixed hyperlipidemia | CPT/HCPCS: 80053; 80061 ==

== ENCOUNTER → 2022-01-29 11:25 | Outpatient (BNVA) | payer MEDICAID, SELFPAY | PROVIDERS: PCP Nurse Practitioner; Visit Provider Nurse Practitioner | DX: I10 Essential (primary) hypertension (principal); E88.81 Metabolic syndrome and other insulin resistance; E78.2 Mixed hyperlipidemia | CPT/HCPCS: 80053; 80061; 81000 ==

== ENCOUNTER 2022-04-09 09:38 | Outpatient (CLI) | payer MEDICAID, SELFPAY ==
--- NOTE | 2022-04-09 09:15 | US_ITS ---
WS: [id number] ULTRASOUND ABDOMEN LIMITED CLINICAL INFORMATION: R74.8 - Abnormal levels of other serum enzymes COMPARISON: None. FINDINGS: Liver Size: Enlarged Craniocaudal length: 17.0 cm. Echogenicity: Coarse Surface nodularity: None. Mass (size and location): None. Bile ducts Intrahepatic ducts: Normal. Common bile duct diameter: 0.3 cm. Gallbladder Normal. Gallstones: None. Gallbladder sludge: None. Gallbladder wall thickening: None. Pericholecystic fluid: None. Sonographic Carter sign: Absent. Pancreas Normal as visualized. Right kidney: Normal. Hydronephrosis: None. Size: 11.4 cm x 5.8 cm x 5.0 cm. Abdominal aorta and IVC Visualized portions are normal. Ascites: None. US/US liver [id number] IMPRESSION: 1. Mild hepatomegaly with coarse echotexture likely due to diffuse fatty infil tration. 2. Normal gallbladder. 3. No hydronephrosis in RIGHT kidney. 4. Normal common bile duct.
== END 2022-04-09 09:39 | disposition home or self-care (01) ==
LOC: RAD 09:40
PROVIDERS: PCP Nurse Practitioner; Visit Provider Nurse Practitioner
DX: R74.8 Abnormal levels of other serum enzymes (principal); R16.0 Hepatomegaly, not elsewhere classified
CPT/HCPCS: 76705

== ENCOUNTER → 2022-05-21 11:55 | Outpatient (BNVA) | payer MEDICAID, SELFPAY | PROVIDERS: PCP Nurse Practitioner; Visit Provider Nurse Practitioner | DX: E88.81 Metabolic syndrome and other insulin resistance (principal); I10 Essential (primary) hypertension; E78.2 Mixed hyperlipidemia; K42.9 Umbilical hernia without obstruction or gangrene | CPT/HCPCS: 80053; 80061 ==

== ENCOUNTER → 2022-08-20 13:46 | Outpatient (BNVA) | payer MEDICAID, SELFPAY | PROVIDERS: PCP Nurse Practitioner; Visit Provider Nurse Practitioner | DX: I10 Essential (primary) hypertension (principal) | CPT/HCPCS: 80053; 84443; 85025 ==

== ENCOUNTER → 2022-10-15 10:55 | Outpatient (BNVA) | payer MEDICAID, SELFPAY | PROVIDERS: PCP Nurse Practitioner; Visit Provider Nurse Practitioner | DX: I10 Essential (primary) hypertension (principal); E88.81 Metabolic syndrome and other insulin resistance | CPT/HCPCS: 80053; 80061; 83036 ==

== ENCOUNTER → 2023-01-14 15:49 | Outpatient (BNVA) | payer MEDICAID, SELFPAY | PROVIDERS: PCP Nurse Practitioner; Visit Provider Nurse Practitioner | DX: I10 Essential (primary) hypertension (principal) | CPT/HCPCS: 80053 ==

== ENCOUNTER → 2023-07-29 08:17 | Outpatient (BNVA) | payer MEDICAID, SELFPAY | PROVIDERS: PCP Nurse Practitioner; Visit Provider Nurse Practitioner | DX: I10 Essential (primary) hypertension (principal); E78.2 Mixed hyperlipidemia | CPT/HCPCS: 80053; 80061 ==

== ENCOUNTER → 2023-12-30 08:51 | Outpatient (BNVA) | payer MEDICAID, SELFPAY | PROVIDERS: PCP Nurse Practitioner; Visit Provider Nurse Practitioner | DX: E78.2 Mixed hyperlipidemia (principal); I10 Essential (primary) hypertension | CPT/HCPCS: 80053; 80061 ==

== ENCOUNTER → 2024-06-15 08:49 | Outpatient (BNVA) | payer MEDICAID, SELFPAY | PROVIDERS: PCP Nurse Practitioner; Visit Provider Nurse Practitioner | DX: I10 Essential (primary) hypertension (principal); R05.9 Cough, unspecified; E55.9 Vitamin D deficiency, unspecified; M47.894 Other spondylosis, thoracic region | CPT/HCPCS: 71046; 80053; 80061; 82306; 85025 ==

== ENCOUNTER → 2024-11-30 09:02 | Outpatient (BNVA) | payer MEDICAID, SELFPAY | PROVIDERS: PCP Nurse Practitioner; Visit Provider Nurse Practitioner | DX: I10 Essential (primary) hypertension (principal); E78.2 Mixed hyperlipidemia; E55.9 Vitamin D deficiency, unspecified; Z12.5 Encounter for screening for malignant neoplasm of prostate; E88.810 Metabolic syndrome | CPT/HCPCS: 80053; 80061; 82306; G0103 ==

== ENCOUNTER → 2025-01-25 14:10 | Outpatient (BNVA) | payer MEDICAID, SELFPAY | PROVIDERS: PCP Nurse Practitioner; Visit Provider Nurse Practitioner | DX: Z11.3 Encounter for screening for infections with a predominantly sexual mode of transmission (principal); I10 Essential (primary) hypertension; E88.810 Metabolic syndrome; Z68.32 Body mass index [BMI] 32.0-32.9, adult; Z87.891 Personal history of nicotine dependence | CPT/HCPCS: 86592; 87491; 87591; 87806 ==